=== PATIENT | male | born 1975 | race Caucasian/White ===

== ENCOUNTER → 2020-04-23 | Outpatient (REF) | payer OTHER ==
[~2020-04-23] MED LIST: BUPR15TA PO; CELE20TA PO; TRAM50TA2 PO
== END ==
LOC: M LAB 23:47
PROVIDERS: ATTEND Physician Assistant
DX: S31.609A Unspecified open wound of abdominal wall, unspecified quadrant with penetration into peritoneal cavity, initial encounter (principal); X58.XXXA Exposure to other specified factors, initial encounter; Y92.9 Unspecified place or not applicable; Y93.9 Activity, unspecified; Y99.9 Unspecified external cause status

== ENCOUNTER → 2020-05-28 | Outpatient (CLI) | payer OTHER ==
[~2020-05-28] MED LIST changes: +B-CO1TAB12 PO; +CETI5SOL3 PO; +D3 +TAB PO; +ESCI5SOL3 PO; +FLON1SPR; +LEXA1TAB2 PO; +RIBO400T PO; +SILD100T PO; +SM M250T PO; +SUMA100T2 PO; +TEST1GEL10 TD; +TEST5GEL TOP
== END ==
LOC: M LABSMTC 12:33
PROVIDERS: ATTEND Anesthesiology
DX: Z20.828 Contact with and (suspected) exposure to other viral communicable diseases (principal)

== ENCOUNTER 2020-06-02 07:52 | Day surgery (SDC) | payer OTHER ==
[~2020-06-02] VITALS: Ht 180.3 cm; Wt 134.4 kg
[~2020-06-02 07:52] MED LIST changes: +NS 1,000 ML IV ONE
--- OUTSIDE RECORDS SUMMARY | 2020-06-02 07:55 | CCD ---
Author Author [facility] Organization [facility] Address Unknown Phone Unavailable Care Team Providers Care Technical Marketing Engineer Name Role Phone Theron Carrasco MD Unavailable Unavailable Theron Carrasco MD Unavailable Unavailable Theron Carrasco MD Unavailable Unavailable Therno Carrasco MD Unavailable Unavailable Theron Carrasco MD Unavailable Unavailable Theron Carrasco MD Unavailable Unavailable Theron Carrasco MD Unavailable Unavailable Theron Carrasco MD Unavailable Unavailable Theron Carrasco MD Unavailable Unavailable Theron Carrasco MD Unavailable Unavailable Theron Carrasco MD Unavailable Unavailable Theron Carrasco MD Unavailable Unavailable Theron Carrasco MD Unavailable Unavailable Theron Carrasco MD Unavailable Unavailable Theron Carrasco MD Unavailable Unavailable Theron Carrasco MD Unavailable Unavailable Theron Carrasco MD Unavailable Unavailable Theron Carrasco MD Unavailable Unavailable Theron Carrasco MD Unavailable Unavailable Theron Carrasco MD Unavailable Unavailable Theron Carrasco MD Unavailable Unavailable Theron Carrasco MD Unavailable Unavailable Theron Carrasco MD Unavailable Unavailable Theron Carrasco MD Unavailable Unavailable Theron Carrasco MD Unavailable Unavailable Theron Carrasco MD Unavailable Unavailable Theron Carrasco MD Unavailable Unavailable Theron Carrasco MD Unavailable Unavailable Theron Carrasco MD Unavailable Unavailable Theron Carrasco MD Unavailable Unavailable Theron Carrasco MD Unavailable Unavailable Theron Carrasco MD Unavailable Unavailable Theron Carrasco MD Unavailable Unavailable Theron Carrasco MD Unavailable Unavailable Luna, S Nirmal MD Unavailable Unavailable Luna, S Nirmal MD Unavailable Unavailable Luna, S Nirmal MD Unavailable Unavailable Luna, S Nirmal MD Unavailable Unavailable Luna, S Nirmal MD Unavailable Unavailable Luna, S Nirmal MD Unavailable Unavailable Luna, S Nirmal MD Unavailable Unavailable Luna, S Nirmal MD Unavailable Unavailable Luna, S Nirmal MD Unavailable Unavailable Luna, S Nirmal MD Unavailable Unavailable Luna, S Nirmal MD Unavailable Unavailable Luna, S Nirmal MD Unavailable Unavailable Luna, S Nirmal MD Unavailable Unavailable Luna, S Nirmal MD Unavailable Unavailable Luna, S Nirmal MD Unavailable Unavailable Luna, S Nirmal MD Unavailable Unavailable Kravchick, Gurpreet MD Unavailable Unavailable Kravchick, Gurpreet MD Unavailable Unavailable Kravchick, Gurpreet MD Unavailable Unavailable Kravchick, Gurpreet MD Unavailable Unavailable Kravchick, Gurpreet MD Unavailable Unavailable Kravchick, Gurpreet MD Unavailable Unavailable Kravchick, Gurpreet MD Unavailable Unavailable Kravchick, Gurpreet MD Unavailable Unavailable Kravchick, Gurpreet MD Unavailable Unavailable Kravchick, Gurpreet MD Unavailable Unavailable Kravchick, Gurpreet MD Unavailable Unavailable Kravchick, Gurpreet MD Unavailable Unavailable Kravchick, Gurpreet MD Unavailable Unavailable Kravchick, Gurpreet MD Unavailable Unavailable Kravchick, Gurpreet MD Unavailable Unavailable Kravchick, Gurpreet MD Unavailable Unavailable Kravchick, Gurpreet MD Unavailable Unavailable Kravchick, Gurpreet MD Unavailable Unavailable Kravchick, Gurpreet MD Unavailable Unavailable Re-disclosure Warning The records that you are about to access may contain information from federally-assisted alcohol or drug abuse programs. If such information is present, then the following federally mandated warning applies: This information has been disclosed to you from records protected by federal confidentiality rules (42 CFR part 2). The federal rules prohibit you from making any further disclosure of this information unless further disclosure is expressly permitted by the written consent of the person to whom it pertains or as otherwise permitted by 42 CFR part 2. A general authorization for the release of medical or other information is NOT sufficient for this purpose. The Federal rules restrict any use of the information to criminally investigate or prosecute any alcohol or drug abuse patient.The records that you are about to access may contain highly sensitive health information, the redisclosure of which is protected by Article 27-F of the [facility] Public Health law. If you continue you may have access to information: Regarding HIV / AIDS; Provided by facilities licensed or operated by the [facility] Office of Mental Health; or Provided by the [facility] Office for People With Developmental Disabilities. If such information is present, then the following [facility] mandated warning applies: This information has been disclosed to you from confidential records which are protected by state law. State law prohibits you from making any further disclosure of this information without the specific written consent of the person to whom it pertains, or as otherwise permitted by law. Any unauthorized further disclosure in violation of state law may result in a fine or senior living sentence or both. A general authorization for the release of medical or other information is NOT sufficient authorization for further disc losure. Family History Family Member Name Family Member Gender Family Member Status Date o f Status Description Data Source(s) Unknown Male Problem [facility] ([facility]) Unknown Male Problem [facility] ([facility]) Encounters Encounter Providers Location Date Indications Data Source(s ) Outpatient Attender: Nirmal Carrasco MD Main Office 04/29/2020 09:15:00 AM EST [facility] ([facility]) Outpatient Attender: Gurpreet Guzman MD [id number] 12:00:00 AM EST - [facility]: Gurpreet Guzman MD 04/26/2019 12:00: 00 AM [facility] Outpatient Attender: Gurpreet Guzman MD [id number] 12:00:00 AM EST - 03/01/2019 10:56:43 AM EST Right testicular pain [facility] Right testicular pain Medications Medication Brand Name Start Date Product Form Dose Route Admi nistrative Instructions Pharmacy Instructions Status Indications Reaction Description Data Source(s) Sutab Sutab 04/29/2020 12:00:00 AM EST active [facility] ([facility]) Bacitracin 0.5 UNT/MG / Polymyxin B 10 U NT/MG Topical Ointment Bacitracin- Polymyxin B 500-86668 UNIT/GM External Ointment (POLYSPORIN) Bacitracin- Polymyxin B 500-59227 UNIT/GM External Ointment (POLYSPORIN) 03/08/2019 12:00:00 AM EST active Apply fo r the postoperative wound 2 times a day for 10 days [facility] Insurance Providers Payer name Policy type / Coverage type Policy ID Covered constitution party ID Covered constitution party's relationship to sanchez Policy Sanchez Plan Information 'S ADMINISTRATION [id number] SP [id number] EAST HUMANA [id number] SP [id number] ACTIVE DUTY [id number] SP [id number] OTHER B [id number] Self [id number] OTHER B [id number] Self [id number] OTHER B [id number] Self [id number] OTHER B [id number] Self [id number] [facility] Federal Service Commercial [id number] Self [id number] [place] Referrals Commercial [id number] Self [id number] [facility] Federal Service Commercial [id number] Self [id number] [place] Referrals Commercial [id number] Self [id number] [facility] Federal Service Commercial [id number] Self [id number] [place] Referrals Commercial [id number] Self [id number] [employer] [place] O [id number] S [id number] [facility] [employer] Service Commercial [id number] Self [id number] N REGIONAL CLAIMS RICKY -O/P [id number] 18 [id number] [facility] Federal Service Commercial Self U [id number] Self [id number] Dede [id number] [facility] O [id number] S [id number] Problems, Conditions, and Diagnoses Code Display Name Description Problem Type Effective Dates Data Source(s) 401939232 Screening for malignant neoplasm of colo n Screening for malignant neoplasm of colon Problem 04/29/2020 12:00:00 AM EST [facility] ([facility]) Results ID Date Data Source [id number] 05/28/2020 12:00:00 PM EST [facility] Name Value Range Interpretation Code Description Data Donna rce(s) Supporting Document(s) SARS coronavirus 2 RNA Not Detected [facility] This lab was ordered by [facility] and reported by [facility]. ID Date Data Source [id number] 05/07/2020 09:11:00 AM EST [facility] Name Value Range Interpretation Code Description Data Donna rce(s) Supporting Document(s) SARS coronavirus 2 RNA Not Detected [facility] This lab was ordered by [facility] Laboratory and reported by [facility]. ID Date Data Source [id number] 05/14/2019 08:27:53 PM EST [facility] Name Value Range Interpretation Code Description Data Donna rce(s) Supporting Document(s) Progress Note [facility] LZFJUz4zOpZBDfAc84/OZVycWANdf9TuDGltOTt0AOevMQKrS2VqJDN4iH3zTVG6WTgQKjDaRiAwPED3 lbm [file] AgICAgICAgICAgICAgICAgICAgICAgICAgICAgICAgICAgICAgICAgICAgICAgDQogICAgICAgICAgIC AgICAgICAgICAgICAgICAgICAgICAgICAgICAgICAg ICAgICAgICAgICAgICAgICAgICAgICAgICAgICAgICAgICAgICAgICAgICAgICAgICAgICAgICAgDQog ICAgICAgICAgICAgICAgICAgICAgICAgICAgICAgICAgICAgICAgICAgICAgICAgICAgICAgICAgICAg ICAgICAgICAgICAgICAgICAgICAgICAgICAgICAgIC AgICAgICAgDQogICAgICAgICAgICAgICAgICAgICAgICAgICAgICAgICAgICAgICAgICAgICAgICAgIC AgICAgICAgICAgICAgICAgICAgICAgICAgICAgICAgICAgICAgICAgICAgICAgICAgDQogICAgICAgIC AgICAgICAgICAgICAgICAgICAgICAgICAgICAgICAg ICAgICAgICAgICAgICAgICAgICAgICAgICAgICAgICAgICAgICAgICAgICAgICAgICAgICAgICAgICAg DQogICAgICAgICAgICAgICAgICAgICAgICAgICAgICAgICAgICAgICAgICAgICAgICAgICAgICAgICAg ICAgICAgICAgICAgICAgICAgICAgICAgICAgICAgIC AgICAgICAgICAgDQogICAgICAgICAgICAgICAgICAgICAgICAgICAgICAgICAgICAgICAgICAgICAgIC AgICAgICAgICAgICAgICAgICAgICAgICAgICAgICAgICAgICAgICAgICAgICAgICAgICAgDQogICAgIC AgICAgICAgICAgICAgICAgICAgICAgICAgICAgICAg ICAgICAgICAgICAgICAgICAgICAgICAgICAgICAgICAgICAgICAgICAgICAgICAgICAgICAgICAgICAg ICAgDQogICAgICAgICAgICAgICAgICAgICAgICAgICAgICAgICAgICAgICAgICAgICAgICAgICAgICAg ICAgICAgICAgICAgICAgICAgICAgICAgICAgICAgIC AgICAgICAgICAgICAgDQogICAgICAgICAgICAgICAgICAgICAgICAgICAgICAgICAgICAgICAgICAgIC NoQFTuJQFdOCEtONNbACPcAJVrWBPxAZOwCYXdTMUrVETzELGcENBqQOTgCRAlKPJnTBZbDSDlSJy2G7 bwFUTvYCBbNT5vQYa3Re6+QIlEPhArIYI7mvLogS8Z JT8ny1JtOWxbLEPck6UgTYj8JO2QLMInZCdbLA4SAFtsft5BSJZaSEUwgBCKs1adHnIoTEN8FUCjJwuq MM4HETYaE1ungwJoPXLaQZACCWpuZRNADRfmJATURSUfZMVmLzLwAWjmSD8Mo5UliGI9EXd+Yi9MLD5g w9OgPWjsFILvMP1tut8BQIyFXkCrG4OmwcB5HXE7CJ PpJg4OUVUjXZMpfCZcZJLtOVSIDoYgQ2DfjE96FMKFLd6+PVyxdvMzWeuTYhY3LYPda4KtYVd3UG0UYS LlGVj8sQJfVRCiM1Wxv2MoTy44RFGbKtezU5DaN7X3XSarMACufDvivfjdDGBjDGGlHO8jEk7kINRoMO KwGgKyLGGAPF1FQQMjZCRjnEVcLXCqOKJKJP8VJKgx MXI1DIWvzyPiwMYmFJgjRQ0RFZDserVfFkhaAXSLUDp+Np5ZSP7ny9NzWJqzYALjYW4ocx5DRMdINnKy U1O9xKZiC8W6GVkjOt7KTNQeLJWkNpWjARYMPXqnCE6NUQ0ylgD4XS2LxPVtDZZrWUKpaOYvQLz4E28t bPOwJMnaYR8STCH+Jethro+Ia9LVRQkNDZvYGPkEwZdCT EOAtWgD3QxZ7SBy5CnN0SvGK01bIcofdGjJNavBU2NWA2dNFNcGIFKSU5FyZQktS9rilVdZIFjVMXSGj MqK18grZBgGMGgXVN7MGSnEd2VRFNaK1WyelCduXhouxCzLQGlHNVCJQ5SVKkhahVvsQFhkKopYQ57pL dsBB3JHs4CFjFwXA5hqg3GbIToWs6GSPUkAP1GXXTr YMGwTHZiHWA3FWCvJvYxPLyzQHPxKVDoNJJ0SSAzIRUeZF8ECeNgSZWmFni2LhXoYFMyYISkow1ZLINc ENIiNBR6YJUmZNQxHDTvIGrbOFLqZZEaJVM8DLNwKYYnDT3TEdRkAWRsCRYrAKEbWOSnSGWoer3RAAJi FANcGgHtMzRlMMMpSSRdJIkbQCCpKJP8QBucJNOlVS StNQ2BIkPcHTYfXDTqRVjgBJRhQOHjex6RRHYeYXIuOEp5WoZxVKZjIYLqLLbnYRLtFUC3LMWkWIMiTG IxNJ8ZSiYlRZQzKFTkGmkoMZGvFYWavd3XMAQlJAWiJTB3MgKvWVCkXCOwERocRZJpCVQzCvNhBURfUK EyXR7NFiDqNPXbGQP2VMUuMBTpJUDdvp7YHHBpBCAw IcHjLgInWOWhYIXyOOflIQUzNSHwSDtmCXQsGINpMC1LAiCdARLtZHF8PBWoJTAnTSExwp7KIXOuRHHz Jun5KbMySVRuSZSsUGfaXMFfFTG8NPLzGAHkEHYbCB8JCtJlIBLcXeP1RguaEKZmJHFtfj7XBAMiJJMw MXdmCxPbDMAvSWBcLErnNOIqRLH8FLp2BOEbELAgGZ 4FDmHiTVCdMtLyAmHdUJImGFLyee4SWUHeUZJwXzT9OzMdWEReBJAdHOmhZGSaIRF6HBT0DKGlQWUjIY 1CHaWtGGFiDpj9RYUbLEXkJQKjpl6ODLQcHXEzYYA5CHKfYJYvBZZxAYlwWPZnPUX3TSV9YSXlEIKrBN 1FUoIyDHHnNwd0TCbjPRBkWMBsbg9WKUHoKNHtQTda VLCrMDGvZQEoBJo0hmRxbCMkWKw9XU8WM9GldvHaCkHSEr7Yw974FJOgXGCzTf5UP4hjQa0cURLpZFTT Ir7CMSo3JJd5KRKeTFE9QAKsLnI1ZmC6RLH9ISn3M0C5IkU4GZE+CWtfBLz6IxI4FMP4SrM1ADQlNmB1 EnY4XJhzCsYiYCT2Kh0dARHYCc7+FVzcrMGrvVhkUKWMYkZ5UKkvADowTNDSEq6K ID Date Data Source [id number] 04/11/2019 07:15:27 PM [facility] Name Value Range Interpretation Code Description Data Donna rce(s) Supporting Document(s) Progress Note [facility] UJHNFn2aKnUILxEo97/GGLzeADPyu2DiTUzxVOi1EBkiTOPoV8DpXXP7bX4yMKF6DIjKEzKpVZmxNfY3 lbm DzBccNRnYqCRXdSsfSBqGkQXiyEspwjBHyRW8OxUH6NLOlH60qXLHmDHCqR5FnGCG3KjO+Id7DASZftM CmBF4GTkyF1Iusw+O48XuB/zaDGKxpBRgM4TiIMDflgthczWZyF3AVyi2KI3TFas5NSwUr/76SSdqeiT yODVsuXOh0AY+CafcWF3rQxYq/c6NO81Bvp7L/Vl/9 TKCkiR87U4p8sHxjogbjeTM3BQhF3vcRwx37j/8BBlV5tYFrFfxoCPjLTbC2HmosOh6mkGnQ24hqS1vx 9uSAgWEDNRSDqEQ3nLlhDaM55TWEys6PXXW+ien7CaIWYbxQLVF1XmjgCoRH2Rq9WC2rmkze80ZoWtfN dGYpQ8QPsGU4qAl5VHVj1WIogOGV7Ko8I/l3aP36tg O9LDsmrTvUyPKfARlizj1Hkf0cUc9oJ2b2qJLn700o8j8F+OD5xrCoz4xKPDlUqy0Hlf+E5E5y5nxLs7 EkaVFioMwnzLXO94d4pD0mvRFCkw0iD+k/hEDMp5CMx9AqDr4NzuAFpDMR8StfZpQOqpttpyExNuaSIq r5PwhZBUqjygWnRQ4KO6u/Jim2EKHYNCGQbIY88f/m pLWYLox4f2md+05JxwUUKN4H6s3q7uYGrSXp/Dq49bIeTW3nqjw7tWM9kn7/SU6du8UTOjlmIwTocuwL giCXis61ST29nyChJlcvgAQ78nolttz3E7tDSwduqK7lxpKY4xjvf8VyUQdb2ZoL9W6+i/eOHXrsa+cy sdQg6ahfzSY8fyzy2jT7Vg2hsKXCnILtPISEN62Nfi YOqzipv6cc+arturo+kqd2gRs5FNL2lYHx2I3xEp6FiI8CVXDFI/RwwtpcAhGP7vnBtx8kIBuxMXfDpTyIs hYWDfXt2dcEUx1NEqh7zhSI35vr8F6bXD5/tWH26hrXCTPB9zR+Jr91So1K6vztpBuU90qnsgpmkWa9z jqRWKEjnGmLMUMFdOEAASi7mPtTUQRraZyPNJie9RQ [file] od+14S+Kujrw1aWOzi3/0urLUhbQSprAw4tJkLRbdC58tf10lO+rExjiReDo52VDgyoAotsPG+SET UP AND LAY OUT INSPECTOR/Sjd [file] ICAgICAgICAgICAgICAgICAgICAgICAgICAgICAgIC PrXLEvUJZlVNZvNG4WJIVdPOIjGDBlYOOcZYAmDOEwXARlVONlCZHxSOPrNCQdHMGrFEMnHNOwNTXnZM VoRKClCGMhSTFkAUPjPIPvKSFtQLOoZZRvMTEfUUMaJUIrMHEdQEJmIPQwANHgNVEmWHDyNN1GLZZzBQ AgICAgICAgICAgICAgICAgICAgICAgICAgICAgICAg ICAgICAgICAgICAgICAgICAgICAgICAgICAgICAgICAgICAgICAgICAgICAgICAgICAgICAgICAgICAg LMFiOM5TJSTjCUNxKYLuOJXzINOrNBAgICGjDSJqIWJrMLCyENGvPOQfJSSoXHDnNKFcQKYzLFCgXWEi ICAgICAgICAgICAgICAgICAgICAgICAgICAgICAgIC NdPKMiZBYeZWFuTRPvKR3LRMKjZETbUKFzYQYtHKSgMXYpRGLiBMXpYXNyMVOwOLIsYFJeQMOrTYWcIH MyYZQmOPIkXZNuGFQnWIGmBKGuWGDrTWFdASYpOBAoLWJaSLIpJMJtLXNkRSJjEQPfSYJdGQBzUG8BEE AgICAgICAgICAgICAgICAgICAgICAgICAgICAgICAg ICAgICAgICAgICAgICAgICAgICAgICAgICAgICAgICAgICAgICAgICAgICAgICAgICAgICAgICAgICAg PGSxHEJhCT6UKLAvMSCgMHIeLMWaIPJgHRIgNROnFPOcHGEiFWHoDHHtZLPkBYDbWCYhPXBmMLWdDSQz ICAgICAgICAgICAgICAgICAgICAgICAgICAgICAgIC GeJOLuGBLgYAZgRLCiTIFiSI9GOVZiEJKgMWXoCRLuRTNnISRsNJYoNHEkURRlYWYjMVHnUZKeJRPbAQ AgICAgICAgICAgICAgICAgICAgICAgICAgICAgICAgICAgICAgICAgICAgICAgICAgICAgICAgICAgIA 0KICAgICAgICAgICAgICAgICAgICAgICAgICAgICAg ICAgICAgICAgICAgICAgICAgICAgICAgICAgICAgICAgICAgICAgICAgICAgICAgICAgICAgICAgICAg LJQoKLOiIJHeBW6GSIBsLXTfLXErNAJrFRVeMVVsLYPzPDNhXJAdWRExYWUsLNRrJZPkVTOfJYYbMOHl ICAgICAgICAgICAgICAgICAgICAgICAgICAgICAgIC OvYONjLFJuXQYeZSLhANAgIFYuZW6UXC29tGIxp6U6KHEnQO3lhqx/Ji7RAAevxnYxmFTqMV9XPpYnMI 6qqo6OBxAyAV9vvw7BPYqMIwCxZ7O8oNIdWXNxHFWXHfZoP07zZVlyAw91LModIYWoRlYdZTh8Sl1AHz MxK5iiJYVzNbO4ZLXoBoO4MUThMgB1EOQkGjEjOECd NLArTDQlJCFNCI2ECuOdL7PfdA92HKQFUn1+GRssvkUeWrvWFgQuQCSnw3BtINh3EQ2WAEZoOwfml2Mq VgKqXZBWHYrsFG0RSFC6XIBgKMFbVq4IETHoM554bhDtGO9TFm9IQrLfGO3ysn4QXqMeLOGoPogHKfi1 WVvrZY0YuZPxUPiDkk0gkhPtzqFBb9GqxdNsfXJVDF RbXXonX3MzzrMsbDHwWTJBWNKioOTrAY8iUH3iWLC3NNInXiVsGYNMIY7QGDLqFKUmrAQgPSSuSAGBAI 8LEXawKNZ2LOPjdjGfeVWzSLuxOR9LDRZghcLzLrHvGJJHCGr+Nn4POU9vu1KtSTxmMrEkVE2kzj5VPB fPJwGyG9F1uSWvJ3T7PPqcEg6JDDUlNOOsNmzpVJJX YLziXK0ZWK9ldsY7AE3JzILwOZEiUHBvgXXuGYo3O19anDPqLZbiOI5VPJS+Jethro+Co3SZRLnOSBaGWXj NjDiKUZXFsQuJ0VeV8UYk6RqP2BkJU91jJurfaVhNMpnPP2LLG3oQWVuFNZJCP4PxXVbfV6gmcScIRGx YGJRSpQfV52icVLxNBBlNGJ5TUKyId2EJVLhQ6Jypb EefIljldFgQHHuIPSVDP6CPQfwzgUvcPNyaTivKR61sGrlYD5TKz3EOxRcEQ5smz2FeMQpLq3XWPDxWa 6PPZQiIJUaWZYpUZW4WHCuImAjMNsdLFBwBKKyEFO7YYZsVJIaGK1CBsWbSJYaTpi2EEYcXSOcQDOwwg 3AUZKcMQLnJVGbDaEtWBLwRLXxNXlwZSTsTUUrZOB2 VFRqZBFyLA6GEqRsGIBjCGAcLUBeLUKfIUTuoa0WFUOzNUAlChXjAnWpVHKwEFOfQPgpGXCwQRC1OvY3 IQBaHWZcWI6YPxKeDWQlKYL0JRBwZTIhDEHvyg4AITSfUIQwUFQ5MpCxXMGyZMPoNAdgSWMgUZJ7KWa4 XIXcZKOyWL5ZDoYaILWnZRY3ZFFaGJEnWRBrpx0AGH NtTSRoBMKjRyMfGGXvBOOdXLaqPWOuULUzRFp9RXPnASYlBT7SSwLpCUPjLFE4OPMrZYDhBQDnji8QMC TdVXOmMtE4HDYlNHPhEKAgGRsaCDYtLSDqGFX0EXZiJGZnWD1ZCeBkNGMlRYG7TASfJVSqACDyif1NTS AzUZTmSUL7HDDaWULiHCZdTEgeTQYsBMZ1BTVrWFTh TEFmVQ7LGuOaGMOeHJGmJGlqLZRnFUXbqz5QAOFnQICrRnElWJMqKRUmNXEyTAirGHNnJVW8BWH8EEOp ZRKpLR6FLyGdUALnRjfmXLFyWQJbECWmmu0WJZEvDPTpWlJmViYdUWImFYAcJJzoKYGnDOF5BOY9AXMp SILfKE6XQvHrDJFmEoduGXRhPNLjDMNcum7XVMFoGY LsDEL9LPNwUIEkDQGzLVafKTLnYXO6TfD0GMFqRDNeEU0ZGbYcBFPsGjviSuRhLKPjVNFiik9GIFJoVS MbGDH2OZVwTYZyLRTuFHthOQVqUGNnXjHnTSZsRUBlGM2NOrNwRSYwKsD4WjCtCXXrVGVjus6ZeYJzdF yfmg8MQHpIIh6RpAekEFPuHSzrHv9pyQOjSeZePRFE Fa7XvjApIXKmEAMWQMxuAGXpVHCpDCHwADUfAEHiKTA1VOS9DXt2QNO2HeOwKZL0WNCjJpZ4JfD6FJE8 WQWdCiD5PUNaRzXdXOs4NBYuFONrCKanVmT+FZ8kXDe+Vx8Wu8SgctU1dsFkHCmuMYFhXt3ZMOVEV9QN Cg== Procedure Social History Code Duration Value Status Description Data Source(s ) Alcohol intake 05/14/2019 12:00:00 AM EST Current drinker of al cohol (finding) completed Current drinker of alcohol (finding) [facility] Cigarettes smoked current (pack per day) - Reported 05/14/19 12:00:00 AM EST UNK completed [facility] Smoking 05/14/2019 12:00:00 AM EST Former smoker completed Former smoker [facility] Vital Signs ID Date Data Source UNK Name Value Range Interpretation Code Description Data Source(s) Body temperature 97.2 [degF] 97.2 [degF] [facility] ([facility]) Body weight 137.894 kg 137.894 kg [facility] Body mass index (BMI) [Ratio] 42.4 kg/m2 42.4 k g/m2 [facility] ([facility]) Heart rate 69 /min 69 /min [facility]) Diastolic blood pressure 83 mm[Hg] 83 mm[Hg] [facility] ([facility]) Systolic blood pressure 130 mm[Hg] 130 mm[Hg] M EDENT ([facility]) Body weight 304.00 [lb_av] 304.00 [lb_av] MEDEN T ([facility]) Body height 71 [in_i] 71 [in_i] [facility]) 5'11" ID Date Data Source [id number] 05/14/2019 08:27:53 PM EST [facility] Name Value Range Interpretation Code Description Data Source(s) WEIGHT RECORDED 303 lb 303 lb [facility] Body height Measured 70.[address] [facility] ID Date Data Source [id number] 04/11/2019 07:15:27 PM EST [facility] Name Value Range Interpretation Code Description Data Source(s) WEIGHT RECORDED 295.2 lb 295.2 lb [facility] Patient Treatment Plan of Care Planned Activity Planned Date Details Description Data Source (s) Bacitracin 0.5 UNT/MG / Polymyxin B 10 UNT/MG Topical Ointment 03/08/2019 12:00:00 AM [facility] osjaron
--- OUTSIDE RECORDS SUMMARY | 2020-06-02 07:55 | CCD | Continuity of Care Document ---
Author Author Eden CARRASCO M.D. Organization Unknown Address [address] [place] [id number] Phone [phone] Care Team Providers Care Editorial Project Manager Name Role Phone Riki Mckeon MD AUTM [phone] Problems Active Problems Provider Date Screening for malignant neoplasm of colon Nirmal bailey M.D. Onset: 04/29/2020 Social History Type Date Description Comments Sex Unknown ETOH Use Occasionally Tobacco Use Start: Unknown End: Unknown Patient is a former smoker QUIT 2008 Allergies, Adverse Reactions, Alerts Active Allergies Reaction Severity Comments Date NKDA 04/29/2020 Latex 04/29/2020 Medications Active Medications SIG Qnty Indications Ordering Provide r Date Sutab [id number] Tablets as directed 1box Nirmal Carrasco M.D. 04/29/2020 Testosterone 1.62% Gel Unknown Carboxymethylcellulose Sodium 0.5% Solution Unknown Vitamin D (Cholecalciferol) 25mcg (1000 Ut) Capsules Unknown Magnesium 400mg Tablets Unknown Riboflavin 100mg Capsules Unknown Sildenafil Citrate 100mg Tablets Unknown Sumatriptan Succinate 100mg Tablets Unknown Vitamin B + C Complex Tablets Unknown Cetirizine HCL 10mg Tablets Unknown Escitalopram Oxalate 20mg Tablets Unknown Fluticasone Propionate 50mcg/Act Suspension Unknown Immunizations Description No Information Available Vital Signs Date Vital Result Comment 04/29/2020 10:40am Height 71 inches 5'11" Weight 304.00 lb BP Systolic 130 mmHg BP Diastolic 83 mmHg Heart Rate 69 /min BMI (Body Mass Index) 42.4 kg/m2 Weight 137.894 kg Body Temperature 97.2 F Results Description No Information Available Procedures Description No Information Available Medical Devices Description No Information Available Encounters Type Date Location Provider Dx Diagnosis Office Visit 04/29/2020 10:15a Main Office Nirmal Carrasco M.D. Z 80.0 Family history of malignant neoplasm of digestive organs Assessments Date Code Description Provider 04/29/2020 Z80.0 Family history of malignant neop lasm of digestive organs Nirmal Carrasco M.D. Plan of Treatment Future Appointment(s):* 05/12/2020 12:15 pm - Nirmal Carrasco M.D. at Main Office 04/29/2020 - Nirmal Carrasco M.D.* Z80.0 Family history of malignant neoplasm of digestive organs* Comments:* 45 yo wm who presents for a screening colonoscopy. No c/o abdominal pain, weight loss, change in bowel habits, or rectal bleeding. Multiple family h/o colon cancer-second degree relatives. No h/o chest pain, or sob. Plan:1.Setup colonoscopy.2. Informed consent given. Functional Status Description No Information Available Mental Status Description No Information Available Referrals Refer to Reason for Referral Status Appt Date Nirmal Carrasco M.D. Scheduled [phone] [place] [address] [phone]
--- OUTSIDE RECORDS SUMMARY | 2020-06-02 07:55 | CCD | Continuity of Care Document ---
Author Author Eden CARRASCO M.D. Organization Unknown Address [address] [place] [address] Phone [phone] Care Team Providers Care Equipment Maint Tech Name Role Phone Riki Mckeon MD AUTM [phone] Problems Active Problems Provider Date Screening for [...] Qnty Indications Ordering Provide r Date [place] [id number] Tablets as directed 1box Nirmal Carrasco M.D. [...] Medical Devices Description No Information Available Encounters Description No Information Available Assessments Date Code Description Provider 04/29/2020 Z80.0 [...] Status Appt Date Nirmal Carrasco M.D. Scheduled [phone] [place] [address] [phone]
[2020-06-02] MEDS ORDERED: propofoL 200 MG/20 ML VIAL As Ordered ONE (09:22)
[2020-06-02] MEDS ORDERED: LIDOCAINE 2% 100MG/5ML SDV (FOR ANES.) As Ordered ONE (09:22)
--- NOTE | 2020-06-02 09:38 | ROOR ---
Patient Name: Eden Lopez Procedure Date: 06/02/2020 9:19 AM Date of : 1975 Age: 45 Room: [facility] Gender: Male Note Status: Finalized Procedure: Total Colonoscopy to Cecum Indications: Colon cancer screening in patient at increased risk: Family history of colorectal cancer in multiple 2nd degree relatives Providers: Nirmal Carrasco MD Referring MD: [facility], Admin. Requesting Provider: Medicines: Monitored Anesthesia Care Complications: No immediate complications. Procedure: Pre-Anesthesia Assessment: - The heart rate, respiratory rate, oxygen saturations, blood pressure, adequacy of pulmonary ventilation, and response to care were monitored throughout the procedure. The Colonoscope was introduced through the anus and advanced to the cecum, identified by appendiceal orifice and ileocecal valve. The colonoscopy was performed without difficulty. The patient tolerated the procedure well. The quality of the bowel preparation was good. Findings: The perianal and digital rectal examinations were normal. Non-bleeding internal hemorrhoids were found during retroflexion. The hemorrhoids were small and Grade I (internal hemorrhoids that do not prolapse). No other significant abnormalities were identified in a careful examination of the remainder of the colon. The exam was otherwise without abnormality on direct and retroflexion views. Impression: - Non-bleeding internal hemorrhoids. - The examination was otherwise normal on direct and retroflexion views. - No specimens collected. - The exam was otherwise normal to the cecum. Recommendation: - Patient has a contact number available for emergencies. The signs and symptoms of potential delayed complications were discussed with the patient. Return to normal activities tomorrow. Written discharge instructions were provided to the patient. - High fiber diet. - Discharge patient to home. - Continue present medications. - Repeat colonoscopy in 5 years for screening purposes. - Return to referring physician. - The findings and recommendations were discussed with the patient. Procedure Code(s): --- Professional --- 83029, Colonoscopy, flexible; diagnostic, including collection of specimen(s) by brushing or washing, when performed (separate procedure) Diagnosis Code(s): --- Professional --- Z80.0, Family history of malignant neoplasm of digestive organs K64.0, First degree hemorrhoids CPT copyright 2019 [employer]. All rights reserved. The codes documented in this report are preliminary and upon welding machine operator submerged arc review may be revised to meet current compliance requirements. Nirmal Carrasco MD Nirmal Carrasco MD 06/02/2020 9:38:09 AM Electronically signed by Nirmal Carrasco MD Number of Addenda: 0 Note Initiated On: 06/02/2020 9:19 AM Estimated Blood Loss: Estimated blood loss: none.
[2020-06-02 10:00] VITALS: BP 143/83
[2020-06-02] MEDS ORDERED: NS 1,000 ML IV ONE (10:15)
== END 2020-06-02 10:05 | disposition home or self-care (01) ==
LOC: M OPP 07:52
PROVIDERS: ATTEND Internal Medicine Gastroenterology
DX: Z12.11 Encounter for screening for malignant neoplasm of colon (principal); Z80.0 Family history of malignant neoplasm of digestive organs; K64.0 First degree hemorrhoids; M19.90 Unspecified osteoarthritis, unspecified site; G43.909 Migraine, unspecified, not intractable, without status migrainosus; G47.30 Sleep apnea, unspecified; Z96.89 Presence of other specified functional implants; Z87.891 Personal history of nicotine dependence; Z88.0 Allergy status to penicillin; Z91.040 Latex allergy status; Z79.899 Other long term (current) drug therapy

== ENCOUNTER 2020-06-19 13:28 | Emergency (ER) | payer OTHER ==
[~2020-06-19] VITALS: Ht 185.4 cm; Wt 136.8 kg
[~2020-06-19 13:28] MED LIST changes: -NS 1,000 ML IV ONE
[2020-06-19] MEDS ORDERED: ONDANSETRON 4MG/2ML VIAL IV ONE (13:45)
[2020-06-19] MEDS ORDERED: MORPHINE 4 MG/ML 1ML VIAL/SYRINGE (J2270) IV ONE (13:45)
[2020-06-19] MEDS ORDERED: CELE1CAP9 PO (14:24)
--- NOTE | 2020-06-19 15:26 | REP ---
INDICATION: testicular pain. COMPARISON: 04/07/2005. TECHNIQUE: Real-time sonographic evaluation of scrotum and contents performed. FINDINGS: The testicles are normal in size and echotexture, right testicle measuring 5.4 x 2.2 x 2.8 cm and left testicle 5.0 x 2.1 x 2.7 cm. Tiny multi cystic changes are seen in the mediastinum testis bilaterally compatible with tubular ectasia. There is no testicular mass or torsion. Blood flow is seen in each testicle with duplex Doppler evaluation. The patient reportedly has had prior surgical removal of the epididymis bilaterally. No hydrocele is seen. IMPRESSION: Bilateral tubular ectasia. No testicular mass or torsion. <Electronically signed by Kishan Dalton > 06/19/20 [id number]
--- NOTE | 2020-06-19 16:53 | REP ---
INDICATION: left testicular pain, hematuria COMPARISON: None TECHNIQUE: Axial noncontrast images from the lung bases to the pubic symphysis with coronal and sagittal reformations. This CT examination was performed using the following dose reduction techniques: Automated exposure control, adjustment of mA and/or kv according to the patient's size, and use of iterative reconstruction technique. FINDINGS: Mild acute left-sided hydronephrosis secondary to 3 mm obstructing calculus at the ureteropelvic junction (images [id number]). The bilateral kidneys/ureters and bladder are otherwise normal. Hepatosteatosis and hepatomegaly. Spleen, pancreas, gallbladder, and bilateral adrenal glands are normal by noncontrast evaluation. The enteric system is without obstruction or acute inflammatory process. Normal terminal ileum and appendix identified in the right lower quadrant. Sigmoid diverticula noted without acute diverticulitis. Pelvis demonstrates normal bladder and age-appropriate prostate/seminal vesicles. No ascites. No free air. No adenopathy. Abdominal aorta without aneurysm. Musculoskeletal structures are intact. Lung bases are clear. Thoracic epidural stimulator noted. IMPRESSION: 1. Mild acute left-sided obstructive uropathy with a 3 mm calculus at the ureteropelvic junction. Otherwise normal appearance of the urinary tract. 2. Hepatomegaly and hepatosteatosis. <Electronically signed by Aiden Kitchen > 06/19/20 [id number]
[2020-06-19 16:57] LABS: BASO % 0.3 % (0.0-1.0); EOS # 0.1 10^3/uL (0.0-0.5); HEMATOCRIT 41.4 % (42.0-52.0); HEMOGLOBIN 14.1 g/dl (13.5-17.5); LYMPH # 2.2 10^3/uL (1.5-5.0); LYMPH % 18.5 % (24.0-44.0); MEAN CORPUSCULAR HEMOGLOBIN 29.1 pg (27.0-33.0); MEAN CORPUSCULAR HGB CONC 34.1 g/dl (32.0-36.5); MEAN CORPUSCULAR VOLUME 85.5 fl (80.0-96.0); MONO # 0.6 10^3/uL (0.0-0.8); MONO % 5.3 % (2.0-8.0); NEUTROPHILS # 8.8 10^3/uL (1.5-8.5); NEUTROPHILS % 74.3 % (36.0-66.0); PLATELET COUNT, AUTOMATED 248 10^3/uL (150-450); RED BLOOD COUNT 4.84 10^6/uL (4.30-6.10); WHITE BLOOD COUNT 11.9 10^3/uL (4.0-10.0)
[2020-06-19] MEDS ORDERED: KETOROLAC 30 MG/ML 1ML VIAL IV ONE (17:00)
[2020-06-19] MEDS ORDERED: OXYC1TAB23 PO (17:20)
[2020-06-19] MEDS ORDERED: KETO10TAB PO (17:20)
[2020-06-19] MEDS ORDERED: FLOM0.4C39 PO (17:22)
[2020-06-19 17:54] VITALS: BP 134/65
== END 2020-06-19 18:03 | disposition home or self-care (01) ==
LOC: EDBD 13:28 → M ED 13:28
DX: N23 Unspecified renal colic (principal); R31.9 Hematuria, unspecified; N50.812 Left testicular pain; N13.0 Hydronephrosis with ureteropelvic junction obstruction; R16.0 Hepatomegaly, not elsewhere classified; K76.0 Fatty (change of) liver, not elsewhere classified; N44.2 Benign cyst of testis; Z87.891 Personal history of nicotine dependence; Z79.890 Hormone replacement therapy; Z79.899 Other long term (current) drug therapy; Z88.0 Allergy status to penicillin; Z91.040 Latex allergy status
CPT/HCPCS: 74176; 76870; 80047; 81001; 85025; 93976; 96374; 96375; 99284; J1885; J2270; J2405

== ENCOUNTER → 2020-07-29 | Outpatient (CLI) | payer OTHER ==
[~2020-07-29] MED LIST changes: +CELE1CAP9 PO; +FLOM0.4C39 PO; +KETO10TAB PO; +OXYC1TAB23 PO
--- NOTE | 2020-07-29 16:55 | REP ---
INDICATION: RT BREAST PAINFUL MASS. COMPARISON: None. TECHNIQUE: MLO and CC views bilateral breasts performed with tomosynthesis. Right retroareolar ultrasound performed. FINDINGS: Ill-defined asymmetric fibroglandular tissue is seen in the right retroareolar region at the site of the reported palpable lump. No discrete mass is seen bilaterally. There is no architectural distortion or clustered microcalcifications. Focused right retroareolar ultrasound demonstrates ill-defined hypoechoic tissue in the right retroareolar region compatible with gynecomastia. IMPRESSION: BIRADS/ACR category 2, benign. There are mammographic and sonographic findings of asymmetric right gynecomastia. No suspicious mass or clustered microcalcifications. This mammogram was interpreted with the aid of an FDA-approved computer-aided detection system. The patient states she had a clinical breast exam in over 1 year ago. The patient letter being requested is M2. RECOMMENDATION: Clinical correlation and follow-up recommended. <Electronically signed by Kishan Dalton > 07/29/20 [id number]
== END ==
LOC: M WHC 14:56
PROVIDERS: ATTEND Internal Medicine
DX: N63.10 Unspecified lump in the right breast, unspecified quadrant (principal); N62 Hypertrophy of breast
CPT/HCPCS: 76642; 77066; G0279